=== PATIENT | female | born 1990 | race American Indian/Alaskan Native ===

== ENCOUNTER 2021-09-26 12:46 | Emergency (ER) | payer SELFPAY ==
[2021-09-26] MEDS ORDERED: IPRATROPIUM/ALBUTEROL SULFATE 3 ML AMPUL.NEB IH ONE (13:13)
[2021-09-26] MEDS ORDERED: KETOROLAC 30 MG/1 ML INJ IV ONE (13:13)
[2021-09-26] MEDS ORDERED: ONDANSETRON 4 MG/2 ML INJ IV ONE (13:13)
[2021-09-26] MEDS ORDERED: SODIUM CHLORIDE 0.9% 1000 ML 1,000 ML IV ONE (13:13)
[2021-09-26] MEDS ORDERED: predniSONE 50 MG TAB PO ONE (13:13)
--- NOTE | 2021-09-26 13:14 | Emergency Department Report ---
ED General Adult HPI - General Chief complaint: Fever Stated complaint: "FLU"? Time Seen by Provider: 09/26/21 12:59 Source: patient Mode of arrival: Ambulatory Limitations: No Limitations - History of Present Illness Initial comments: 31 year old female presents to ED with complaints of flu like symptoms. She states her symptoms started 3 days ago. She reports productive cough with post tussive emesis, wheezing, chills, fever (highest 100.7 this morning but did not take anything), diaphoresis, decreased appetite, generalized body aches and generalized fatigue. Patient states that she took a home COVID-19 kit yesterday was negative. She states that her youngest daughter and her ex- were positive last night. She did take a routine COVID-19 test prior to the onset of her symptoms last week and it was negative. She has not been vaccinated against COVID-19 neither with anyone else in the house. MD Complaint: Flu like symptoms -: days(s) (3) Severity scale (0 -10): 10 - Related Data Previous Rx's Medication Instructions Recorded Last Taken Type Albuterol Mdi (or & Nicu Only) 2 puff IH QID PRN #8.5 gram 09/26/21 Unknown Rx [ProAir HFA Inhaler] Promethazine /Codeine 5 ml PO Q6H PRN #90 ml 09/26/21 Unknown Rx [Phenergan/Codeine 6.25-10 mg/5 ml] predniSONE [Deltasone] 50 mg PO QDAY #4 tab 09/26/21 Unknown Rx Allergies Allergy/AdvReac Type Severity Reaction Status Date / Time No Known Allergies Allergy Unverified 09/26/21 12:52 ED Review of Systems ROS: Stated complaint: "FLU"? Other details as noted in HPI Comment: All other systems reviewed and negative Constitutional: chills, fever, weakness ENT: other (rhinorrhea ) Respiratory: cough, wheezing. denies: shortness of breath, SOB with exertion, SOB at rest Cardiovascular: denies: chest pain, palpitations, dyspnea on exertion, edema, syncope, paroxysmal nocturnal dyspnea Gastrointestinal: denies: abdominal pain, nausea, vomiting, diarrhea, constipation, hematemesis, melena, hematochezia Genitourinary: denies: urgency, dysuria, frequency, hematuria, discharge, abnormal menses, dyspareunia Musculoskeletal: denies: back pain, joint swelling, arthralgia, myalgia Skin: denies: rash, lesions, change in color, change in hair/nails, pruritus Neurological: denies: headache, weakness, numbness, paresthesias, confusion, abnormal gait, vertigo Psychiatric: denies: anxiety, depression, auditory hallucinations, visual hallucinations, homicidal thoughts, suicidal thoughts Hematological/Lymphatic: denies: easy bleeding, swollen glands ED Past Medical Hx - Medications Home Medications: Home Medications Medication Instructions Recorded Confirmed Last Taken Type Albuterol Mdi (or & Nicu Only) 2 puff IH QID PRN #8.5 gram 09/26/21 Unknown Rx [ProAir HFA Inhaler] Promethazine /Codeine 5 ml PO Q6H PRN #90 ml 09/26/21 Unknown Rx [Phenergan/Codeine 6.25-10 mg/5 ml] predniSONE [Deltasone] 50 mg PO QDAY #4 tab 09/26/21 Unknown Rx ED Physical Exam - General Limitations: No Limitations General appearance: alert, in no apparent distress - Head Head exam: Present: atraumatic, normocephalic, normal inspection - Eye Eye exam: Present: normal appearance, PERRL, EOMI Pupils: Present: normal accommodation - ENT ENT exam: Present: normal exam, mucous membranes moist, TM's normal bilaterally - Neck Neck exam: Present: normal inspection, full ROM. Absent: meningismus - Respiratory Respiratory exam: Present: normal lung sounds bilaterally, wheezes, rhonchi - Cardiovascular Cardiovascular Exam: Present: normal rhythm, tachycardia, normal heart sounds - GI/Abdominal GI/Abdominal exam: Present: soft. Absent: distended, tenderness, guarding, rebound - Neurological Exam Neurological exam: Present: alert, oriented X3, CN II-XII intact, normal gait - Psychiatric Psychiatric exam: Present: normal affect, normal mood - Skin Skin exam: Present: intact ED Course Vital Signs 09/26/21 09/26/21 12:52 15:19 Temperature 98.4 F 98.2 F Pulse Rate 107 H 74 Respiratory 18 16 Rate Blood Pressure 106/61 95/64 [Right] O2 Sat by Pulse 100 96 Oximetry ED Medical Decision Making - Lab Data Result diagrams: 09/26/21 13:31 09/26/21 13:31 - Radiology Data Radiology results: report reviewed Patient: JOANIE HANSEN#: [id number] 4 : 1990 A cct:[id number] Age/Sex: 31 / F ADM Date: 09/26/21 Loc: ED Attending Dr: Ordering Physician: DIMAS MCCORMACK Date of Service: 09/26/21 Procedure(s): XR chest routine 2V Accession Number(s): [id number] cc: DIMAS MCCORMACK Fluoro Time In Minutes: CHEST 2 VIEWS INDICATION / CLINICAL INFORMATION: Cough. COMPARISON: None available. FINDINGS: SUPPORT DEVICES: None. HEART / MEDIASTINUM: No significant abnormality. LUNGS / PLEURA: No significant pulmonary or pleural abnormality. No pneumothorax. ADDITIONAL FINDINGS: No significant additional findings. IMPRESSION: 1. No acute findings. Signer Name: Dick Hobbs MD Signed: 09/26/2021 1:48 PM Workstation Name: [id number] Transcribed By: SB Dictated By: DICK HOBBS MD Electronically Authenticated By: DICK HOBBS MD Signed Date/Time: 09/26/211347 DD/ 47 TD/TT: - Medical Decision Making Rapid flu negative. Chest x-ray shows nothing acute. Overall labs does not suggest any significant abnormality. The patient is now resting comfortably, is alert and in no distress. The patient has normal mental status and is neurologically intact. The patient appears well and is able to tolerate p.o. fluids and solids by mouth and there is no significant dehydration. There is no respiratory distress and no signs of systemic toxicity. The history, exam, diagnostic testing and current condition do not demonstrate an infectious process such as meningitis, severe pneumonia, retropharyngeal abscess, acute respiratory distress syndrome with hypoxia, sepsis or other serious viral/bacterial infection requiring further testing, treatment, consultation or admission at this time. The vital signs have been stable. Discussed all lab results with patient. I do recommend that she gets a repeat COVID-19 test via PCR rapid test at a local urgent care or pharmacy. Patient will be given medication to help her symptoms. She expressed understanding of all instructions and agreed with plan. The patient's condition is stable and appropriate for discharge. The patient will pursue further outpatient evaluation with the primary care physician or other designated. Critical care attestation.: If time is entered above; I have spent that time in minutes in the direct care of this critically ill patient, excluding procedure time. ED Disposition Clinical Impression: Viral syndrome Disposition: 01 HOME / SELF CARE / HOMELESS Is pt being admited?: No Does the pt Need Aspirin: No Condition: Stable Instructions: Viral Illness, Adult Additional Instructions: I recommend that you use the albuterol MDI as prescribed to help with any wheezing, cough or shortness of breath. Also recommend that you take the prednisone, and the promethazine with codeine. You can alternate Tylenol with ibuprofen for any fever or pain. Drink lots of fluids. Try to avoid tobacco use. I know you did at home COVID-19 test kit and it was negative, but I do recommend that you follow-up with either urgent care or pharmacy to get another COVID-19 test either PCR rapid just to confirm. Recommend that you quarantine at home until you get the results of your test. Recommend lots of handwashing. Follow-up closely with your PCP. Return to the ER if your symptoms changes or worsens in any way. Prescriptions: predniSONE [Deltasone] 50 mg PO QDAY #4 tab Promethazine /Codeine [Phenergan/Codeine 6.25-10 mg/5 ml] 5 ml PO Q6H PRN #90 ml PRN Reason: cough Albuterol Mdi (or & Nicu Only) [ProAir HFA Inhaler] 2 puff IH QID PRN #8.5 gram PRN Reason: Shortness Of Breath Referrals: MYKE ABRAHAM MD [Staff Physician] - 3-5 Days Forms: Work/School Release Form(ED) Time of Disposition: 15:07
[2021-09-26 13:48] LABS: Hematocrit 42.2 % (30.3-42.9); Hemoglobin 13.8 gm/dl (10.1-14.3); Mean Corpuscular HGB Conc 33 % (30-34); Mean Corpuscular Volume 93 fl (79-97); Platelet Count 208 K/mm3 (140-440); Red Blood Count 4.54 M/mm3 (3.65-5.03); Red Cell Distribution Width 13.2 % (13.2-15.2)
--- NOTE | 2021-09-26 13:52 | XRay Report ---
CHEST 2 VIEWS INDICATION / CLINICAL INFORMATION: Cough. COMPARISON: None available. FINDINGS: SUPPORT DEVICES: None. HEART / MEDIASTINUM: No significant abnormality. LUNGS / PLEURA: No significant pulmonary or pleural abnormality. No pneumothorax. ADDITIONAL FINDINGS: No significant additional findings. IMPRESSION: 1. No acute findings. Signer Name: Dick Hobbs MD Signed: 09/26/2021 1:48 PM Workstation Name: [id number]
[2021-09-26 13:59] LABS: Bilirubin,Urine NEG (Negative); Blood,Urine NEG (Negative); Color,Urine Yellow (Yellow); Mucus,Urine 3+ /HPF
[2021-09-26 14:10] LABS: BUN/Creatinine Ratio 8; Blood Urea Nitrogen 7 mg/dL (7-17); Calcium 9.3 mg/dL (8.4-10.2); Hemolysis Index 5
[2021-09-26 14:37] LABS: Band Neutrophils # (Manual) 0.1 K/mm3; Total Cells Counted 100
[2021-09-26 14:38] LABS: Large Platelets Few; Platelet Estimate Consistent w Auto; RBC Morphology Normal
[2021-09-26 15:04] LABS: HCG Qualitative,Urine Negative (Negative)
[2021-09-26 15:20] VITALS: BP 95/64
== END 2021-09-26 15:25 | disposition home or self-care (01) ==
LOC: ED 12:46
DX: B34.9 Viral infection, unspecified (principal); R05.9 Cough, unspecified; R06.2 Wheezing; Z79.899 Other long term (current) drug therapy
CPT/HCPCS: 36415; 71046; 80048; 81001; 81025; 85007; 85025; 87086; 87400; 94640; 96361; 96374; 96375; 99284; J1885; J2405; J7030; J7512; Q0162